=== PATIENT | female | born 1935 | race Caucasian/White ===

== ENCOUNTER 2020-10-02 11:42 | Emergency (ER) | payer OTHER ==
[~2020-10-02] VITALS: Ht 154.9 cm; Wt 61.2 kg
[~2020-10-02 11:42] MED LIST: ALPRAZOLAM 0.0.25 M1 PO; AMBIEN 10 MG TA10 MG PO; AVELOX 400 MG400 M1 PO; B-122500 MCG SUBLING; CALCIUM 600 +1 EAC5 PO; CLARITIN10 M2 PO; CLEOCIN HCL300 MG PO; COLACE100 MG PO; COMPAZINE10 MG PO; FLEXERIL PO; FLONASE16 GM INH; HYDROCODON-ACE1 EAC5 PO; HYDROCODON-ACE1 EAC7 PO; HYDROCODON-ACE1 EAC8 PO; IBUPROFEN 800800 M1 PO; IRON325 PO; LANSOPRAZOLE30 MG PO; PREDNISONE 20 M20 MG PO; PREVACID15 MG PO; PREVACID30 MG PO; TRIAMCINOLONE16.5 GM NS; VICODIN 5-3001 EACH PO
[2020-10-02 11:50] VITALS: BP 148/75
[2020-10-02] MEDS ORDERED: FLEXERIL PO (13:00)
== END 2020-10-02 13:10 | disposition home or self-care (01) ==
LOC: ER 11:42
DX: M25.511 Pain in right shoulder (principal); K21.9 Gastro-esophageal reflux disease without esophagitis; G43.909 Migraine, unspecified, not intractable, without status migrainosus; Z88.3 Allergy status to other anti-infective agents; Z88.1 Allergy status to other antibiotic agents; Z88.8 Allergy status to other drugs, medicaments and biological substances; Z79.899 Other long term (current) drug therapy; Z90.49 Acquired absence of other specified parts of digestive tract

== ENCOUNTER → 2021-07-10 | Outpatient (CLI) | payer OTHER | LOC: RAD 09:11 | PROVIDERS: ATTEND Internal Medicine | DX: J44.9 Chronic obstructive pulmonary disease, unspecified (principal); M47.814 Spondylosis without myelopathy or radiculopathy, thoracic region ==